=== PATIENT | female | born 1975 | race Caucasian/White ===

== ENCOUNTER 2022-05-16 12:52 | Emergency (ER) | payer OTHER ==
[~2022-05-16] VITALS: Ht 165.1 cm; Wt 78.9 kg
[2022-05-16 12:57] VITALS: BP 138/86
[2022-05-16] MEDS ORDERED: FEXO1TAB8 PO (14:28)
[2022-05-16] MEDS ORDERED: AMOX1TAB16 PO (14:28)
[2022-05-16] MEDS ORDERED: NAPR-1180 PO (14:28)
[2022-05-16] MEDS ORDERED: KETOROLAC 60 MG VIAL (30MG/ML) IM ONE (14:30)
[2022-05-16] MEDS ORDERED: CYCLOBENZAPRINE HCL 10 MG TABLET PO ONE (14:30)
[2022-05-16] MEDS ORDERED: AMOX/CLAV 875/125MG TAB PO ONE (14:30)
== END 2022-05-16 14:47 | disposition home or self-care (01) ==
LOC: EDH 12:52
DX: J32.0 Chronic maxillary sinusitis (principal); E78.00 Pure hypercholesterolemia, unspecified; F20.9 Schizophrenia, unspecified; I10 Essential (primary) hypertension; J44.9 Chronic obstructive pulmonary disease, unspecified; Z79.1 Long term (current) use of non-steroidal anti-inflammatories (NSAID)
CPT/HCPCS: 99283; 96372; J1885

== ENCOUNTER 2023-09-25 17:28 | Emergency (ER) | payer OTHER ==
[~2023-09-25] VITALS: Ht 165.1 cm; Wt 119.7 kg
[~2023-09-25 17:28] MED LIST: SULF1TAB42 PO
[2023-09-25 18:20] LABS: ADD UA MICROSCOPIC YES; APPEARANCE,URINE CLOUDY (CLEAR); BILIRUBIN,URINE NEGATIVE (NEGATIVE); COLOR,URINE LIGHT-YELLOW (YELLOW); GLUCOSE, URINE (UA) NEGATIVE (NEGATIVE); KETONES,URINE NEGATIVE (NEGATIVE); LEUKOCYTE ESTERASE ,URINE 500 Leu/uL (NEGATIVE); NITRATE,URINE NEGATIVE (NEGATIVE); OCCULT BLOOD,URINE NEGATIVE (NEGATIVE); PROTEIN,URINE NEGATIVE (NEGATIVE); UROBILINOGEN,URINE 0.2 mg/dL (0.2-1.0)
[2023-09-25 18:20] LABS: BASOPHILS # (AUTO) 0.04 K/uL (0.00-0.20); BASOPHILS % (AUTO) 0.5 % (0.0-5.0); EOSINOPHILS # (AUTO) 0.16 K/uL (0.00-0.70); EOSINOPHILS % (AUTO) 1.8 % (0.0-8.0); HEMATOCRIT 38.2 % (36-48); IMMATURE GRANULOCYTE ABSOLUTE 0.02 K/uL (0-1); LYMPHOCYTES # (AUTO) 2.4 K/uL (1.0-4.8); LYMPHOCYTES % (AUTO) 26.7 % (21.0-51.0); MEAN CORPUSCULAR HEMOGLOBIN 28.1 pg (27.0-33.0); MEAN CORPUSCULAR HGB CONC 32.2 g/dL (32.0-36.0); MEAN CORPUSCULAR VOLUME 87.2 fL (79-99); MONOCYTES # (AUTO) 0.5 K/uL (0.1-1.0); MONOCYTES % (AUTO) 6.1 % (3.0-13.0); NEUTROPHILS # (AUTO) 5.7 K/uL (1.8-7.7); NEUTROPHILS % (AUTO) 64.7 % (40.0-77.0); PLATELET COUNT (AUTO) 388 K/uL (130-400); RED BLOOD CELL COUNT(AUTO) 4.38 MIL/uL (4.00-5.50); RED CELL DISTRIBUTION WIDTH 14.6 % (11.0-15.5); WHITE BLOOD COUNT (AUTO) 8.8 K/uL (4.8-10.8)
[2023-09-25 18:22] LABS: BACTERIA,URINE RARE /HPF (None Seen); MUCUS,URINE RARE LPF (None Seen); OTHER CASTS, URINE 3 /LPF (None Seen); SQUAMOUS EPITHELIAL CELL,UR MOD /HPF (0-2); UNCLASSIFIED CRYSTAL 2 /HPF (None Seen)
[2023-09-25 18:23] LABS: HCG,QUALITATIVE URINE NEGATIVE (NEGATIVE)
[2023-09-25 18:30] LABS: POTASSIUM 3.6 mmol/L (3.5-5.1)
[2023-09-25 18:35] LABS: ALBUMIN 3.5 g/dL (3.5-5.0); BILIRUBIN,TOTAL 0.5 mg/dL (0.2-1.0); TOTAL PROTEIN, SERUM 7.8 g/dL (6.0-8.3)
[2023-09-25] MEDS ORDERED: CEPH500B PO (21:43)
[2023-09-25] MEDS ORDERED: CEPHALEXIN 500 MG CAPSULE PO ONE (22:00)
[2023-09-25 22:11] VITALS: BP 152/86; PULSE 102; RESP 16; O2SAT 96
== END 2023-09-25 22:13 | disposition home or self-care (01) ==
LOC: EDH 17:28
DX: N39.0 Urinary tract infection, site not specified (principal); F41.9 Anxiety disorder, unspecified; E78.00 Pure hypercholesterolemia, unspecified; F20.9 Schizophrenia, unspecified; F31.9 Bipolar disorder, unspecified; I10 Essential (primary) hypertension; Z88.1 Allergy status to other antibiotic agents
CPT/HCPCS: 36415; 80053; 81001; 81025; 83690; 85025; 87088

== ENCOUNTER 2024-01-27 19:21 | Emergency (ER) | payer OTHER ==
[~2024-01-27] VITALS: Ht 165.1 cm; Wt 129.3 kg
[~2024-01-27 19:21] MED LIST changes: +CEPH500B PO; +CEPH500T PO; +PHEN-847 PO
[2024-01-27 21:59] VITALS: BP 122/78; PULSE 76; RESP 16; O2SAT 99
== END 2024-01-27 22:00 | disposition home or self-care (01) ==
LOC: EDH 19:21
DX: S63.682A Other sprain of left thumb, initial encounter (principal); F41.9 Anxiety disorder, unspecified; Z79.899 Other long term (current) drug therapy; Z98.890 Other specified postprocedural states; Z88.8 Allergy status to other drugs, medicaments and biological substances; W18.39XA Other fall on same level, initial encounter; Y93.89 Activity, other specified; Y92.89 Other specified places as the place of occurrence of the external cause; Y99.8 Other external cause status
CPT/HCPCS: 73130

== ENCOUNTER 2024-02-03 21:09 | Emergency (ER) | payer OTHER ==
[~2024-02-03] VITALS: Ht 165.1 cm; Wt 129.3 kg
[2024-02-03 23:56] LABS: BASOPHILS # (AUTO) 0.04 K/uL (0.00-0.20); BASOPHILS % (AUTO) 0.4 % (0.0-5.0); EOSINOPHILS # (AUTO) 0.14 K/uL (0.00-0.70); EOSINOPHILS % (AUTO) 1.4 % (0.0-8.0); HEMATOCRIT 36.5 % (36-48); IMMATURE GRANULOCYTE ABSOLUTE 0.04 K/uL (0-1); MEAN CORPUSCULAR HEMOGLOBIN 28.3 pg (27.0-33.0); MEAN CORPUSCULAR HGB CONC 32.6 g/dL (32.0-36.0); MEAN CORPUSCULAR VOLUME 86.9 fL (79-99); MONOCYTES # (AUTO) 0.7 K/uL (0.1-1.0); MONOCYTES % (AUTO) 7.1 % (3.0-13.0); NEUTROPHILS # (AUTO) 6.8 K/uL (1.8-7.7); NEUTROPHILS % (AUTO) 69.7 % (40.0-77.0); PLATELET COUNT (AUTO) 340 K/uL (130-400); RED CELL DISTRIBUTION WIDTH 14.5 % (11.0-15.5); WHITE BLOOD COUNT (AUTO) 9.7 K/uL (4.8-10.8)
[2024-02-04 00:03] LABS: CREATININE 0.9 mg/dL (0.5-1.0); POTASSIUM 4.1 mmol/L (3.5-5.1)
[2024-02-04 00:08] LABS: ALBUMIN 3.6 g/dL (3.5-5.0); BILIRUBIN,TOTAL 0.5 mg/dL (0.2-1.0); TOTAL PROTEIN, SERUM 7.6 g/dL (6.0-8.3)
[2024-02-04] MEDS ORDERED: IOHEXOL 350 MG/ML 100ML INFUS..BTL IV ONE (02:09)
[2024-02-04] MEDS: 0.9% NACL 500ML IV.SOLN 500 ML IV ONE (02:11)
[2024-02-04 04:00] VITALS: BP 124/72; PULSE 88; RESP 16; O2SAT 98
[2024-02-04] MEDS ORDERED: CEPH500B PO (04:17)
[2024-02-04] MEDS ORDERED: METR375C2 PO (04:17)
== END 2024-02-04 04:32 | disposition home or self-care (01) ==
LOC: EDH 21:09
DX: S30.1XXA Contusion of abdominal wall, initial encounter (principal); K57.32 Diverticulitis of large intestine without perforation or abscess without bleeding; F20.9 Schizophrenia, unspecified; E78.00 Pure hypercholesterolemia, unspecified; I10 Essential (primary) hypertension; Z88.1 Allergy status to other antibiotic agents; W18.39XA Other fall on same level, initial encounter; Y93.89 Activity, other specified; Y92.89 Other specified places as the place of occurrence of the external cause; Y99.8 Other external cause status
CPT/HCPCS: 99284; 80053; 85025; 36415; 74177; Q9967